=== PATIENT | female | born 1960 | race Caucasian/White ===

== ENCOUNTER 2021-08-03 10:15 | Emergency (ER) | payer SELFPAY ==
[2021-08-03] MEDS ORDERED: AMOX TR-K CLV1 EAC4 PO (12:13)
== END 2021-08-03 12:25 | disposition home or self-care (01) ==
LOC: ER1 10:15
DX: K11.20 Sialoadenitis, unspecified (principal); F17.200 Nicotine dependence, unspecified, uncomplicated; E11.9 Type 2 diabetes mellitus without complications; I10 Essential (primary) hypertension
CPT/HCPCS: 99282